=== PATIENT | male | born 1935 ===

== ENCOUNTER 2022-05-23 13:33 | Outpatient (REF) | payer MEDICARE, SELFPAY | END 2022-05-23 13:34 | disposition home or self-care (01) | LOC: HO.SH 13:33 | PROVIDERS: Visit Provider Internal Medicine | DX: Z01.118 Encounter for examination of ears and hearing with other abnormal findings (principal); H90.3 Sensorineural hearing loss, bilateral | CPT/HCPCS: 92557; 92567 ==